=== PATIENT | male | born 1965 | race Asian ===

== ENCOUNTER 2024-01-28 14:18 | Outpatient (AMB) | payer OTHER, SELFPAY ==
--- NOTE | 2024-01-28 14:15 | A.OFFVIS_ITS ---
Intake Visit Reasons: elevated PSA Intake Note: New Patient presents for initial visit for Elevated PSA Last PSA 08/2023: 6.8 Urology Medications: none Blood Thinner: none Dispute Resolution Specialist Required: No Accompanied by: Self / Same As Patient Allergies No Known Allergies Allergy (Verified 01/28/24 15:26) Medication List - Last Reconciled 01/28/24 by MICHAEL Matute atorvastatin PO losartan PO metformin PO sulfamethoxazole-trimethoprim 800-160 mg (Bactrim DS) 1 tab PO BID 14 days HPI Comments Details: Kerwin is a 58-year-old male patient of Dr. Greer. He has a past medical history of hypercholesteremia, diabetes, asthma, and hypertension. He presents to the office today as a new patient for an elevated PSA. In discussion with the patient today he reports following up with his PCP at which time PSA was noted to be elevated and recommendation was made for urology referral for further assessment evaluation. When asked he does report noting new onset nocturia over the last 1-2 months. He reports episodes of nocturia 3-4 times per night. He otherwise denies urinary urgency, urinary frequency, incontinence, hematuria, dysuria, foul smelling urine, changes to urinary stream, flank pain, fever, and or chills. When asked he reports he is unsure of his family history and if he has a family history of prostate cancer. We discussed at length potential causes of elevated PSA. CLAUDIA performed left-side of prostate noted to be boggy otherwise right side with no smooth and no suspicious nodules palpated. In office urinalysis results reviewed with the patient today. In review of patient's chart it appears PSA 09/22 6.8. Discussed treatment for potential prostatitis given CLAUDIA. Discussed redraw of PSA 6-8 weeks status post completion of antibiotic therapy. Will also obtain retroperitoneal ultrasound for further assessment evaluation. He otherwise offers no other issues or concerns at this time. [facility] Medical History High cholesterol Diabetes mellitus Asthma Hypertension Review of Systems Const All systems reviewed & are unremarkable except as noted in HPI and below Physical Exam Const General: cooperative, comfortable, no acute distress, well developed, alert and awake Orientation/consciousness: patient oriented x3 HEENT Head: Yes normal to inspection, Yes normocephalic and Yes atraumatic Ears: hearing grossly normal bilaterally Eyes General: appearance normal, both eyes and all related structures Neck Neck: Yes normal visual inspection and Yes trachea midline Chest Chest palpation & inspection: normal inspection of the chest Resp Effort & Inspection: normal respiratory effort and able to speak in complete sentences Cardio Rate: regular rate GI Inspection: Yes normal to inspection General: Yes no CVA tenderness Back/Spine/Pelvis Back: no CVA tenderness Skin General skin exam: no rashes or lesions noted Neuro General: patient oriented x3 Extrem General: Yes normal to inspection Psych Appearance: grossly normal and well kempt Mental Status: mental status grossly normal Speech and movement: Normal speech and movement present and Clear speech present Affect: normal affect Attitude: cooperative Thought process: Normal thought process present Thought content: Normal thought content present Results AMB Urinalysis, Automated UA Leukoctes 0 Dustin/uL Last Edit by [employer] on 01/28/24 14:34 UA Nitrite Last Edit by [employer] on 01/28/24 14:34 UA Urobilinogen 0.2 mg/dL Last Edit by [employer] on 01/28/24 14:34 UA Protein 0 mg/dL Last Edit by [employer] on 01/28/24 14:34 UA pH 6.0 Last Edit by [employer] on 01/28/24 14:34 UA Blood 0 Alonso/uL Last Edit by [employer] on 01/28/24 14:34 UA Specific [place] 1.025 Last Edit by [employer] on 01/28/24 14:34 UA Ketone Last Edit by [employer] on 01/28/24 14:34 UA Bilirubin 0 mg/dL Last Edit by [employer] on 01/28/24 14:34 UA Glucose 0 mg/dL Last Edit by [employer] on 01/28/24 14:34 Results Reviewed Results Reviewed: Laboratory Last Values Urine pH (Auto) 6.0 01/28/24 14:19 Specific [place] (Auto) 1.025 01/28/24 14:19 Urine Protein (Auto) 0 mg/dL 01/28/24 14:19 Glucose (UA)(Auto) 0 mg/dL 01/28/24 14:19 Urine Blood (Auto) 0 Alonso/uL 01/28/24 14:19 Urine Bilirubin (Auto) 0 mg/dL 01/28/24 14:19 Urine Urobilinogen (Auto) 0.2 mg/dL 01/28/24 14:19 Leukocyte Esterase (Auto) 0 Dustin/uL 01/28/24 14:19 Assessment & Plan Assessment & Plan (1) Elevated PSA: Code(s): R97.20 - Elevated prostate specific antigen [PSA] Category: Medical (2) Prostatitis: Code(s): N41.9 - Inflammatory disease of prostate, unspecified Category: Medical Plan In office urinalysis results reviewed with the patient today; as noted above. CLAUDIA performed; discussed potential for prostatitis given left-side of the prostate noted to be boggy upon CLAUDIA. Discussed at length potential causes of elevated PSA. Start Bactrim as discussed and prescribed. Will obtain redraw of PSA status post completion of antibiotic therapy. Will obtain retroperitoneal ultrasound for further assessment evaluation. Discussed importance of limiting fluids 2-3 hours prior to bed to decrease episodes of nocturia. Follow-up in 2 months with imaging and labs to be completed prior; or sooner with any issues, concerns, and or questions. Orders: Orders US retroperitoneal comp 6 Weeks N41.9 - Inflammatory disease of prostate, unspecified, R35.1 - Nocturia, R97.20 - Elevated prostate specific antigen [PSA] AMB Urinalysis Automated Today Z13.9 - Encounter for screening, unspecified PSA,Total (Free>4and<10) Today N41.9 - Inflammatory disease of prostate, unspecified, R97.20 - Elevated prostate specific antigen [PSA] Medications: New sulfamethoxazole-trimethoprim 800-160 mg (Bactrim DS) 1 tab PO BID 28 tabs 0RF 14 days N39.0 - Urinary tract infection, site not specified Patient Instructions: The patient had an opportunity to ask questions regarding the treatment plan. All questions were answered. Physical exam, labs, and imaging were discussed and reviewed in detail. As well as risks, benefits, and discussion of treatment choices. No major barriers to understanding were identified. The patient expressed understanding and agreement with the above treatment plan. The patient was made aware they should contact our office by phone for worsening of their current condition, the appearance of new symptoms, or with any questions or concerns. Compliance is encouraged with any medications and follow up testing that is ordered. It is a privilege to be allowed the opportunity to participate in? your urological care.? Again, if you have any questions or concerns If you have any questions or concerns please do not hesitate to contact me. The office is [phone]. This note is constructed using voice recognition software. While every effort has been made to ensure accuracy vocational psychologist errors may have been included. Yours sincerely, MICHAEL Matute Coding Level of Care Code New Pt Level 4 (83368) Diagnoses Elevated PSA R97.20 Prostatitis N41.9
== END 2024-01-28 14:59 | disposition home or self-care (01) ==
PROVIDERS: PCP Internal Medicine; Visit Provider Nurse Practitioner Family
DX: R97.20 Elevated prostate specific antigen [PSA] (principal); N41.9 Inflammatory disease of prostate, unspecified; Z13.9 Encounter for screening, unspecified
CPT/HCPCS: 99204

== ENCOUNTER → 2024-01-28 14:18 | Outpatient (BNVA) | payer OTHER, SELFPAY | PROVIDERS: PCP Internal Medicine; Visit Provider Nurse Practitioner Family | DX: R97.20 Elevated prostate specific antigen [PSA] (principal); N41.9 Inflammatory disease of prostate, unspecified | CPT/HCPCS: 81003 ==

== ENCOUNTER 2024-04-14 14:22 | Outpatient (AMB) | payer OTHER, SELFPAY ==
--- NOTE | 2024-04-14 15:00 | A.OFFVIS_ITS ---
Intake Visit Reasons: 2m/US/PSA Intake Note: Patient presents today for follow up on:Elevated PSA, ultrasound and psa lab results PSA: 7.63 Urology Medications: none Blood Thinner: none Real Estate Marketing Coordinator Required: No Accompanied by: Self / Same As Patient Allergies No Known Allergies Allergy (Verified 04/15/24 10:52) Medication List - Last Reconciled 04/15/24 by MICHAEL Matute atorvastatin PO levofloxacin 500 mg PO daily 3 days losartan PO metformin PO HPI Comments Details: Kerwin is a 58-year-old male patient of Dr. Greer. He has a past medical history of hypercholesteremia, diabetes, asthma, and hypertension. He presents to the office today for follow-up. Of note, patient was seen approximately 2 months ago as a new patient for an elevated PSA at which time retroperitoneal ultrasound and redraw of PSA status post completion of antibiotic therapy was ordered. During last office visit CLAUDIA was performed and left-side of the prostate was noted to be boggy at which time we discussed potential elevated PSA being related to prostatitis. In discussion with the patient today he reports having completed antibiotic therapy as prescribed. Patient had imaging at [facility], call to [facility] imaging remains pending this was discussed with the patient today. PSAs are as follows: 09/22 6.8, 04/24 7.6, % free PSA 8%. PCPT risk calculator results reviewed with the patient today. 23% chance that biopsy is negative for cancer, 53% chance of low-grade prostate cancer, and 24% chance of high-grade prostate cancer. We discussed further intervention to include prostate biopsy verses MRI of the prostate and risks and benefits of these interventions. All questions were answered. He otherwise offers no other issues or concerns at this time. [facility] Medical History High cholesterol Diabetes mellitus Asthma Hypertension Review of Systems Const All systems reviewed & are unremarkable except as noted in HPI and below Physical Exam Const General: cooperative, comfortable, no acute distress, well developed, alert and awake Orientation/consciousness: patient oriented x3 HEENT Head: Yes normal to inspection, Yes normocephalic and Yes atraumatic Ears: hearing grossly normal bilaterally Eyes General: appearance normal, both eyes and all related structures Neck Neck: Yes normal visual inspection and Yes trachea midline Chest Chest palpation & inspection: normal inspection of the chest Resp Effort & Inspection: normal respiratory effort and able to speak in complete sentences Cardio Rate: regular rate GI Inspection: Yes normal to inspection General: Yes no CVA tenderness Back/Spine/Pelvis Back: no CVA tenderness Skin General skin exam: no rashes or lesions noted Neuro General: patient oriented x3 Extrem General: Yes normal to inspection Psych Appearance: grossly normal and well kempt Mental Status: mental status grossly normal Speech and movement: Normal speech and movement present and Clear speech present Affect: normal affect Attitude: cooperative Thought process: Normal thought process present Thought content: Normal thought content present Insight: Fair insight present (Psych) Judgement: Fair judgement present (Psych) Results AMB Urinalysis, Automated UA Leukoctes 0 Dustin/uL Last Edit by [employer] on 04/14/24 15:50 UA Nitrite Negative Last Edit by [employer] on 04/14/24 15:50 UA Urobilinogen 0.2 mg/dL Last Edit by [employer] on 04/14/24 15:50 UA Protein 0 mg/dL Last Edit by [employer] on 04/14/24 15:50 UA pH 6.0 Last Edit by [employer] on 04/14/24 15:50 UA Blood 0 Alonso/uL Last Edit by [employer] on 04/14/24 15:50 UA Specific [place] 1.015 Last Edit by [employer] on 04/14/24 15:50 UA Ketone Negative Last Edit by [employer] on 04/14/24 15:50 UA Bilirubin 0 mg/dL Last Edit by [employer] on 04/14/24 15:50 UA Glucose 0 mg/dL Last Edit by [employer] on 04/14/24 15:50 Results Reviewed Results Reviewed: Laboratory Last Values Urine pH (Auto) 6.0 04/14/24 15:49 Specific [place] (Auto) 1.015 04/14/24 15:49 Urine Protein (Auto) 0 mg/dL 04/14/24 15:49 Glucose (UA)(Auto) 0 mg/dL 04/14/24 15:49 Urine Ketones (Auto) Negative 04/14/24 15:49 Urine Blood (Auto) 0 Alonso/uL 04/14/24 15:49 Urine Nitrite (Auto) Negative 04/14/24 15:49 Urine Bilirubin (Auto) 0 mg/dL 04/14/24 15:49 Urine Urobilinogen (Auto) 0.2 mg/dL 04/14/24 15:49 Leukocyte Esterase (Auto) 0 Dustin/uL 04/14/24 15:49 Assessment & Plan Assessment & Plan (1) Elevated PSA: Code(s): R97.20 - Elevated prostate specific antigen [PSA] Category: Medical Plan: Plan Risks and benefits regarding trans rectal ultrasound with prostate biopsy were discussed.? Options of continued surveillance, no treatment and biopsy were offered. The risks include but are not limited to, urinary tract infection, sepsis, difficulty urinating, bleeding into the rectum or bladder that requires intervention and transfusion,and failure to diagnose prostate cancer. The patient understands the options and the risks involved. They wish to proceed. Printed information was provided to ensure he remains off anticoagulation for the appropriate length of time. He may require cardiology or PCP clearance.? An antibiotic will be administered prior to, and following the procedure Plan In office urinalysis results reviewed with the patient today; as noted above. Recent PSA results reviewed with the patient today; as noted above. We discussed at length potential causes of elevated PSA as well as further treatment options and risks and benefits of these interventions. Will await results of imaging as retroperitoneal ultrasound remains pending. Will schedule for prostate biopsy as discussed Prescription provided for antibiotic therapy discussed importance of taking antibiotic day before procedure, day of procedure, and day after procedure. Follow-up per doctor's orders; or sooner with any questions, concerns, and or issues. Orders: Orders AMB Urinalysis Automated 04/14/24 Z13.9 - Encounter for screening, unspecified Medications: New levofloxacin take 1 tablet day before procedure, 1 tablet day of procedure and 1 tablet day after procedure 500 mg PO daily 3 days 3 tabs 0RF Discontinued sulfamethoxazole-trimethoprim 800-160 mg (Bactrim DS) Discontinued Reason: Doctor's Order 1 tab PO BID 14 days 28 tabs 0RF N39.0 - Urinary tract infection, site not specified Patient Instructions: The patient had an opportunity to ask questions regarding the treatment plan. All questions were answered. Physical exam, labs, and imaging were discussed and reviewed in detail. As well as risks, benefits, and discussion of treatment choices. No major barriers to understanding were identified. The patient expressed understanding and agreement with the above treatment plan. The patient was made aware they should contact our office by phone for worsening of their current condition, the appearance of new symptoms, or with any questions or concerns. Compliance is encouraged with any medications and follow up testing that is ordered. It is a privilege to be allowed the opportunity to participate in? your urological care.? Again, if you have any questions or concerns If you have any questions or concerns please do not hesitate to contact me. The office is [phone]. This note is constructed using voice recognition software. While every effort has been made to ensure accuracy assembly line machine operator errors may have been included. Yours sincerely, MICHAEL Matute Coding Level of Care Code Est Pt Level 4 (15776) Diagnoses Elevated PSA R97.20
== END 2024-04-14 15:40 | disposition home or self-care (01) ==
PROVIDERS: PCP Internal Medicine; Visit Provider Nurse Practitioner Family
DX: R97.20 Elevated prostate specific antigen [PSA] (principal)
CPT/HCPCS: 99214

== ENCOUNTER → 2024-04-14 14:22 | Outpatient (BNVA) | payer OTHER, SELFPAY | PROVIDERS: PCP Internal Medicine; Visit Provider Nurse Practitioner Family | DX: R97.20 Elevated prostate specific antigen [PSA] (principal) | CPT/HCPCS: 81003 ==

== ENCOUNTER 2024-05-05 07:39 | Outpatient (REF) | payer OTHER, SELFPAY ==
[2024-05-05] MEDS: Lidocaine HCl 1 % MPF 5 ML VIAL 10 ML SUBCUT (08:30)
--- NOTE | 2024-05-06 17:10 | W.PM.OPN ---
Operative Note Operative Note Date of Service: 05/06/24 Narrative: Preoperative diagnosis: Elevated PSA Postoperative diagnosis: Elevated PSA Procedure: 1. transrectal ultrasound measurement of prostate 2. transrectal ultrasound-guided pudendal nerve block 3. transrectal ultrasound-guided prostate biopsy 12 core Surgeon: Dr. Miller Rodgers Anesthetic: 10cc 1% lidocaine Indications for procedure: Elevated PSA 7.6 8% Counselling: Technical aspects, risks and benefits of proposed procedure were discussed in full. All questions have been answered, written consent has been obtained and patient agrees to proceed. Procedure: The patient was brought into the procedure area and placed in a left lateral decubitus position. Patient identity confirmed. Perioperative antibiotics confirmed. Safety pause time out performed. CLAUDIA was performed to dilate rectal sphincter Iodine 10cc with 60 cc gel was placed per rectum to reduce infection risk using a catheter tip syringe. 8 Hz [place] rectal end-fire ultrasound probe was placed transrectally without difficulty. The prostate was visualized. Seminal vesicles were normal. Prostate margins were clearly demarcated. Bladder was seen superiorly. No cystic structures were noted No calcifications were noted at the surgical margin The prostate was otherwise homogeneous in nature The prostate was measured in 3 dimensions Prostatic Width: 4.4 cm Prostatic Height: 3.1 cm Urethral Length: 4.3 cm Total volume equals : 30 ml An ultrasound-guided pudendal nerve block was performed using a 22 gauge spinal needle in the sagittal plane. 4 cc of 1% lidocaine placed at the junction of each seminal vesicle and 2 cc placed at the apex of the prostate. A 12 core biopsy was performed with 6 cores each side using an 18 gauge prostate biopsy gun. Two cores each were taken at the prostate apex, mid and base on each side. Cores were spaced between lateral and medial aspects. Each core was examined as placed on specimen foam as part of quality audit representative to ensure a minimum 1 cm of length and minimal discontinuity. He tolerated the procedure well with minimal rectal bleeding. Blood pressure remained stable following procedure. He was able to ambulate to bathroom after 5 minutes. Printed instructions regarding antibiotic use and common adverse events from the procedure such as low-grade temperature, potential infection and bleeding were given. He understands to call the office or go to an emergency room should any of these events arise. Pathology: 12 core prostate biopsy. CPT code 82691: Transrectal ultrasound; this is a diagnostic test for evaluation of the prostate and surrounding structures, looking for abnormalities or suspicious areas worrisome for cancer CPT code 60271: Biopsy, prostate; needle or punch, single or multiple, any approach CPT code 89014: Ultrasonic guidance for needle placement (eg, biopsy, aspiration, injection, localization device), imaging supervision and interpretation
== END 2024-05-05 07:40 | disposition home or self-care (01) ==
LOC: HO.US 07:39
PROVIDERS: PCP Internal Medicine; Visit Provider Urology
DX: R97.20 Elevated prostate specific antigen [PSA] (principal)
CPT/HCPCS: 55700; 76942; 88305; 88344; J2003

== ENCOUNTER → 2024-05-05 07:39 | Outpatient (BNV) | payer OTHER, SELFPAY | PROVIDERS: PCP Internal Medicine; Visit Provider Urology | DX: R97.20 Elevated prostate specific antigen [PSA] (principal) | CPT/HCPCS: 55700; 76872; 76942 ==

== ENCOUNTER 2024-05-19 13:41 | Outpatient (AMB) | payer OTHER, SELFPAY ==
--- NOTE | 2024-05-19 13:41 | A.OFFVIS_ITS ---
Intake Visit Reasons: Prostate biopsy results Intake Note: Patient is present for PROSTATE BIOPSY RESULTS Urology Medication:NONE Antibiotic Allergy:NONE Blood Thinner:NONE Assistant Clinical Nurse Manager Required: No Allergies No Known Allergies Allergy (Verified 05/19/24 13:42) HPI Comments Details: Garrydine is a pleasant in male. He is a patient of Dr. Greer. He seen for the following urological history - prostate cancer Telemedicine Evaluation 15 min Consultation Doximity Ervin Video Discussion of prostate biopsy results with patient and Does have low volume, grade group 1 prostate adenocarcinoma 2/12 cores less than 10 percentage core NCCN 2023 First step is to complete staging Organize prostate MRI Leaning toward active surveillance Prostate cancer 09/22 6.8, 04/24 7.6, % free PSA 8%. Histologic type: Adenocarcinoma, acinar type Histologic grade: [place] score: 3+3=6 % of pattern 4: 0% % of pattern 5: 0% Grade group: 1 Tumor quantitation: Number cores positive: 2 Total number of cores: 12 tissue involved: 1-2% of all tissue examined Periprostatic fat inv.: Not identified Seminal vesicle inv.: Not identified Perineural inv.: Not identified LVI: Not identified [facility] Medical History High cholesterol Diabetes mellitus Asthma Hypertension Review of Systems Const All systems reviewed & are unremarkable except as noted in HPI and below Reports no additional complaints Resp Reports no additional complaints GI Reports no additional complaints Reports as per HPI Musc Reports no additional complaints Physical Exam Telemedicine evaluation Appropriate responses Regular breathing rate and rhythm HEENT Head: Yes normal to inspection Ears: hearing grossly normal bilaterally Eyes General: appearance normal, both eyes and all related structures Neck Neck: Yes normal visual inspection Chest Chest palpation & inspection: normal inspection of the chest Resp Effort & Inspection: normal respiratory effort and able to speak in complete sentences Telehealth Telehealth Telehealth Platform: [employer] Location of provider rendering services: practice address Location of patient: address on file Patient Identification confirmed using: Name, : Yes Telehealth method: video Patient verbally consented to treatment: Yes Patient verbally consented to billing insurance company: Yes Patient informed of any privacy concerns related to visit: Yes Minutes spent on Phone/Video with Pt.: 15 Assessment & Plan Assessment & Plan (1) Hormone sensitive prostate cancer: Code(s): C61 - Malignant neoplasm of prostate; Z19.1 - Hormone sensitive malignancy status Category: Medical Plan Start finasteride Complete prostate MRI Orders: Orders 2 MR Prostate wo/w con 2 Weeks C61 - Malignant neoplasm of prostate, Z19.1 - Hormone sensitive malignancy status Medications: New finasteride 5 mg PO DAILY 90 days 90 tabs 1RF N13.8 - Other obstructive and reflux uropathy, N40.1 - Benign prostatic hyperplasia with lower urinary tract symptoms, N41.9 - Inflammatory disease of prostate, unspecified, R33.9 - Retention of urine, unspecified Patient Instructions: Imaging studies, laboratory and physical exam results were discussed and reviewed in detail. No major barriers to patient understanding were identified. An opportunity to ask questions regarding the treatment plan was provided. All questions were answered. The patient expressed understanding and agreement with the above treatment plan. The patient is aware they should contact our office by phone for worsening of their current condition or the appearance of new urologic symptoms. Compliance is encouraged with any medications and followup testing that is ordered. It is a privilege to participate in the urologic care of your patient. If you have any questions or concerns regarding treatment for the above conditions, or other urologic issues, please do not hesitate to contact me. The office tel ephone contact is [phone]. This note is constructed using voice recognition software. While every effort has been made to ensure accuracy sales development executive errors may have been included. Yours sincerely, Dr Miller Rodgers MD, [facility] - Urology Providers of Expert, Compassionate Care for the Genitourinary System Coding Level of Care Code Est Pt Level 4 (91582) Diagnoses Hormone sensitive prostate cancer C61; Z19.1
== END 2024-05-19 15:43 | disposition home or self-care (01) ==
LOC: HO.HUSH 13:41
PROVIDERS: PCP Internal Medicine; Visit Provider Urology
DX: C61 Malignant neoplasm of prostate (principal); Z19.1 Hormone sensitive malignancy status
CPT/HCPCS: 99214

== ENCOUNTER 2024-06-24 08:48 | Outpatient (REF) | payer OTHER, SELFPAY ==
--- NOTE | ~2024-06-24 | MR_ITS ---
EXAMINATION: MR PROSTATE WITHOUT THEN WITH IV CONTRAST HISTORY: C61 - Malignant neoplasm of prostate TECHNIQUE: 1.5T body coil survey of the pelvis was performed. Phase array coil imaging of the prostate was performed in multiplanar high resolution axial, coronal, sagittal fast spin echo T2 and axial T1 weighted imaging sequences. Axial diffusion imaging at intermediate and high field performed with ADC mapping. Next, mL Gadavist was given by intravenous infusion, and dynamic axial imaging performed. COMPARISON: There are no prior studies for comparison. CLINICAL DATA: Most recent PSA: 7.63 ng/mL on 04/07/2024 PSA Density: 0.31 ng/mL squared Prostate Biopsy: Positive biopsy on 05/05/2024 with a Institute score 3+3 = 6 FINDINGS: Prostate size: 3.8 x 4.3 x 2.9 cm. Calculated prostate volume is 24.6 mL. Hemorrhage: There is increased T1 signal intensity in the left peripheral zone, compatible with hemorrhage. Transitional Zone: There is mild heterogeneous nodular hypertrophy of the transitional zone. Peripheral Zone: There is decreased T2 signal intensity in the left half of the prostate corresponding to the areas of hemorrhage noted on T1-weighted images. No definite restricted diffusion is seen in this region. There is a 1.4 cm focus of abnormal signal intensity at the anterior aspect of the apex in the midline (series 7, images 20-22), with imaging characteristics as follows: Lesion #1: DWI PI-RADS v2.1 score: 4 T2 PI-RADS v2.1 score: 4 DCE PI-RADS v2.1 score: + Overall PI-RADS v2.1 score: 4 Capsular contact: yes Extracapsular extension: No definite Seminal vesicle invasion: None Neurovascular bundle involvement: None Seminal Vesicles/Ejaculatory Ducts: Symmetric and normal in signal and caliber. Pelvic Lymph Nodes: No obturator or internal iliac lymph nodes meeting size criteria for adenopathy. Marrow Signal: Normal marrow signal and enhancement without focal lesion identified. MR/MR Prostate wo/w con IMPRESSION: Lesion of the anterior aspect of the prostate apex in the midline, highly suspicious for clinically significant prostate carcinoma. PI-RADS 4: High (clinically significant cancer is likely to be present) PI-RADS Assessment Categories PI-RADS 1: Very low (clinically significant cancer is highly unlikely to be present) PI-RADS 2: Low (clinically significant cancer is unlikely to be present) PI-RADS 3: Intermediate (the presence of clinically significant cancer is equivocal) PI-RADS 4: High (clinically significant cancer is likely to be present) PI-RADS 5: Very high (clinically significant cancer is highly likely to be present) [employer]. MR Prostate Imaging Reporting and Data System version 2.1. [email or web address] Electronically signed by: Abraham Kohli MD 06/24/2024 10:33 AM MARÍA
[2024-06-24] MEDS: gadobutroL 10 ML VIAL IVPUSH (09:49)
== END 2024-06-24 08:49 | disposition home or self-care (01) ==
LOC: HO.MRI 08:48
PROVIDERS: PCP Internal Medicine; Visit Provider Urology
DX: C61 Malignant neoplasm of prostate (principal); Z19.1 Hormone sensitive malignancy status
CPT/HCPCS: 72197; A9585

== ENCOUNTER 2024-06-30 10:33 | Outpatient (AMB) | payer OTHER, SELFPAY ==
--- NOTE | 2024-06-30 10:35 | MHC.OFFVIS ---
Intake Visit Reasons: Prostate MRI(Set) Intake Note: Patient is present for PROSTATE MRI Urology Medication:FINASTERIDE Antibiotic Allergy:NONE Blood Thinner:NONE Dx Board Operator Required: No Allergies No Known Allergies Allergy (Verified 06/30/24 10:36) HPI Comments Details: Garrydine is a pleasant in male. He is a patient of Dr. Greer. He seen for the following urological history - prostate cancer Follow-up from prostate MRI Does have low volume, grade group 1 prostate adenocarcinoma 2/12 cores less than 10 percentage core NCCN 2023 MRI low volume disease Will start with active surveillance Remain on finasteride Arrange polaris Prostate cancer MRI: 06/25 1.4 cm lesion anterior midline PI-RADS 4, prostate 30 g 09/22 6.8, 04/24 7.6 % free PSA 8%. Histologic type: Adenocarcinoma, acinar type Histologic grade:Chantel score: 3+3=6 % of pattern 4: 0% % of pattern 5: 0% Grade group: 1 Tumor quantitation: Number cores positive: 2 Total number of cores: 12 Periprostatic fat inv.: Not identified Seminal vesicle inv.: Not identified Perineural inv.: Not identified LVI: Not identified PFSH Medical History High cholesterol Diabetes mellitus Asthma Hypertension Review of Systems Const Denies chills and Denies fever(s) Card Reports no additional complaints and Denies syncope Resp Denies cough GI Denies abdominal pain and Denies heartburn Reports as per HPI and Denies change in libido Neuro Denies syncope Psych Denies change in libido Endo Denies change in libido Physical Exam Const General: cooperative, healthy appearing, comfortable and no acute distress Orientation/consciousness: patient oriented x3 HEENT Face and sinus: Yes normal facial exam Mouth: moist mucous membranes Neck Neck: Yes normal visual inspection, Yes full ROM and Yes trachea midline Chest Chest palpation & inspection: normal inspection of the chest Resp Effort & Inspection: normal respiratory effort, able to speak in complete sentences and no respiratory distress GI Inspection: Yes normal to inspection Back/Spine/Pelvis Cervical Spine: normal cervical lordosis Thoracic/Lumbar Spine: thoracic and lumbar spine normal to inspection Skin General skin exam: no rashes or lesions noted Neuro General: patient oriented x3, gait normal, tone normal and moves all extremities Extrem General: Yes normal to inspection and Yes capillary refill normal Results AMB Urinalysis, Automated UA Leukoctes 0 Dustin/uL Last Edit by RICK Durán on 06/30/24 11:21 UA Nitrite Negative Last Edit by RICK Durán on 06/30/24 11:21 UA Urobilinogen 0.2 mg/dL Last Edit by RICK Durán on 06/30/24 11:21 UA Protein 0 mg/dL Last Edit by RICK Durán on 06/30/24 11:21 UA pH 6.0 Last Edit by Keshawn Kwok [facility] on 06/30/24 11:21 UA Blood 0 Alonso/uL Last Edit by [facility] Kw[facility] on 06/30/24 11:21 UA Specific [place] 1.020 Last Edit by Keshawn Kwok [facility] on 06/30/24 11:21 UA Ketone Negative Last Edit by RICK Durán on 06/30/24 11:21 UA Bilirubin 0 mg/dL Last Edit by Keshawn Kwok [facility] on 06/30/24 11:21 UA Glucose 0 mg/dL Last Edit by Keshawn Kwok [facility] on 06/30/24 11:21 Results Reviewed Results Reviewed: Laboratory Last Values Urine pH (Auto) 6.0 06/30/24 11:21 Specific [place] (Auto) 1.020 06/30/24 11:21 Urine Protein (Auto) 0 mg/dL 06/30/24 11:21 Glucose (UA)(Auto) 0 mg/dL 06/30/24 11:21 Urine Ketones (Auto) Negative 06/30/24 11:21 Urine Blood (Auto) 0 Alonso/uL 06/30/24 11:21 Urine Nitrite (Auto) Negative 06/30/24 11:21 Urine Bilirubin (Auto) 0 mg/dL 06/30/24 11:21 Urine Urobilinogen (Auto) 0.2 mg/dL 06/30/24 11:21 Leukocyte Esterase (Auto) 0 Dustin/uL 06/30/24 11:21 Assessment & Plan Assessment & Plan (1) Hormone sensitive prostate cancer: Code(s): C61 - Malignant neoplasm of prostate; Z19.1 - Hormone sensitive malignancy status Category: Medical Plan Continue finasteride Six-month follow-up PSA Prolaris Orders: Orders AMB Urinalysis Automated Today Z13.9 - Encounter for screening, unspecified Prostate Specific Antigen 6 Months C61 - Malignant neoplasm of prostate, Z19.1 - Hormone sensitive malignancy status Patient Instructions: Imaging studies, laboratory and physical exam results were discussed and reviewed in detail. No major barriers to patient understanding were identified. An opportunity to ask questions regarding the treatment plan was provided. All questions were answered. The patient expressed understanding and agreement with the above treatment plan. The patient is aware they should contact our office by phone for worsening of their current condition or the appearance of new urologic symptoms. Compliance is encouraged with any medications and followup testing that is ordered. It is a privilege to participate in the urologic care of your patient. If you have any questions or concerns regarding treatment for the above conditions, or other urologic issues, please do not hesitate to contact me. The office telephone contact is [phone]. This note is constructed using voice recognition software. While every effort has been made to ensure accuracy linoleum floor installer errors may have been included. Yours sincerely, Dr Miller Rodgers MD, [facility] - Urology Providers of Expert, Compassionate Care for the Genitourinary System Coding Level of Care Code Est Pt Level 3 (34921) Diagnoses Hormone sensitive prostate cancer C61; Z19.1
--- OUTSIDE RECORDS SUMMARY | 2024-06-30 14:10 | XMS_ITS | Clinical Summary ---
Author Organization [facility] Address [address] [place] [address] Phone Care Team Providers Care Processing Rep Name Role Phone Donna Greer MD Primary Care Provider [phone] Encounters Date Type Department Care Team Description 04/12/2024 10:22 AM EST - 04/12/2024 11:59 PM EST Hospital Encounter [facility] Ultrasound [address] [place] [phone] Elevated prostate specific antigen (PSA); Inflammatory disease of prostate, unspecified; Nocturia Discharge Disposition: Home or Self Care from Last 3 Months Surgical History Surgery Date Site/Laterality Comments OTHER SURGICAL HISTORY PROCEDURE: DENIES PREVIOUS SURGERY Medical History Medical History Date Comments HTN (hypertension) DX:HTN (hyper tension) Allergic rhinitis 11/15/2018 DX:Allergic rh initis Nasal septal deviation 11/15/2018 DX:Nasal septal deviation; COMMENT: left Pure hypercholesterolemia 11/15/2018 DX:Pur e hypercholesterolemia Family History Medical History Relation Name Comments No Known Problems Brother No Known Problems Father No Known Problems Mother No Known Problems Sister Relation Name Status Comments Brother Alive Father Alive Mother Alive Sister Alive Social History Tobacco Use Types Packs/Day Years Used Date Smoking Tobacco: Never Smokeless Tobacco: Never Alcohol Use Standard Drinks/Week Comments No 0 (1 standard drink = 0.6 oz pur e alcohol) Sex and Gender Information Value Date Recorded Sex Assigned at Not on file Gender Identity Not on file Sexual Orientation Not on file Job Start Date Occupation Industry Not on file Not on file Not on file Obstetrics History Plan of Treatment Health Maintenance Due Date Last Done Comments Cholesterol Screening (Lipid Panel) 07/02/2019 Colorectal Cancer Screening: Stool Based Tests (FOBT/FIT) 07/02/2019 Depression Screening 07/02/2019 HIV Screening 07/02/2019 Hepatitis C Screening 07/02/2019 Social Influencers of Health Screening 07/02/2019 Hepatitis B Vaccines (2 of 3 - 19+ 3-dose series) 02/01/2020 01/04/2020 Hypertension/CHF/CAD Annual BMP Blood Test 05/15/2022 COVID-19 Vaccine ( season) 2024 05/13/2023, 04/02/2021, 09/27/2020, Additional history exists Influenza Vaccine (#1) 2024 03/11/2023, 2020 DTaP,Tdap,and Td Vaccines (2 - Td or Tdap) 04/09/2032 04/09/2022 Pneumococcal Vaccine: Pediatrics (0 to 5 Years) and At-Risk Patients (6 to 64 Years) Aged Out 03/19/2021 No longer eligible based on patient's age to complete this topic Zoster Vaccines Completed 03/11/2023, 04/09/2022 HIB Vaccines Aged Out No longer eligi ble based on patient's age to complete this topic HPV Vaccines Aged Out No longer eligi ble based on patient's age to complete this topic Hepatitis A Vaccines Aged Out No long er eligible based on patient's age to complete this topic IPV Vaccines Aged Out No longer eligi ble based on patient's age to complete this topic MMR Vaccines Aged Out No longer eligi ble based on patient's age to complete this topic Meningococcal ACWY Vaccine Aged Out N o longer eligible based on patient's age to complete this topic RSV Immunization Patients Under 20 months Aged Out No longer eligible based on patient's age to complete this topic Varicella Vaccines Aged Out No longer eligible based on patient's age to complete this topic Procedures Procedure Name Priority Date/Time Associated Diagnosis Comments US RETROPERITONEAL COMPLETE Routine 04/12/2024 11:57 AM EST Elevated prostate specific antigen (PSA) Inflammatory disease of prostate, unspecified Nocturia PSA TOTAL, FREE AND COMPLEXED, DIAGNOSTIC Routine 04/07/2024 8:27 AM EST Inflammatory disease of prostate, unspecified Elevated prostate specific antigen (PSA) Nocturia from Last 3 Months Results * US Retroperitoneal Complete (04/12/2024 11:57 AM EST) Anatomical Region Laterality Modality Body Ultrasound 04/12/2024 12:3 2 PM EST Impressions 04/12/2024 12:41 PM EST NORMAL KIDNEYS. ENLARGED PROSTATE WITH MINIMAL POST VOID RESIDUAL. -------- FINAL REPORT -------- Dictated By: AMAN LEOS Dictated Date: 04/12/2024 12:32 ET Assigned Physician: AMAN LEOS Reviewed and Electronically Signed By: AMAN LEOS Signed Date: 04/12/2024 12:41 ET Workstation ID: [id number] Transcribed By: Self Edit Transcribed Date: 04/12/2024 12:32 ET Narrative 04/12/2024 12:41 PM EST PROCEDURE: US RETROPERITONEAL COMPLETE INDICATION: Elevated prostate-specific antigen TECHNIQUE: ??2-D flores scale, color Doppler ultrasound of the kidneys. COMPARISON: No priors available. FINDINGS: Right kidney measures 10.3 cm in length. ??Left kidney measures 9.5 cm in length. No hydronephrosis or solid renal mass. Prevoid bladder volume measures 323 mL. ??Postvoid bladder volume measures 27 mL. ??Bladder is within normal limits. ??Bilateral ureteral jets seen at the bladder. Prostate volume is estimated at 38 mL. Procedure Note Aman Leos MD - 04/12/2024 PROCEDURE: US RETROPERITONEAL COMPLETE INDICATION: Elevated prostate-specific antigen TECHNIQUE: 2-D flores scale, color Doppler ultrasound of the kidneys. COMPARISON: No priors available. FINDINGS: Right kidney measures 10.3 cm in length. Left kidney measures9.5 cm in length. No hydronephrosis or solid renal mass. Prevoid bladder volume measures 323 mL. Postvoid bladder volume [id number] mL. Bladder is within normal limits. Bilateral ureteral jets seen atthe bladder. Prostate volume is estimated at 38 mL. IMPRESSION: NORMAL KIDNEYS. ENLARGED PROSTATE WITH MINIMAL POST VOID RESIDUAL. -------- FINAL REPORT -------- Dictated By: AMAN LEOS Dictated Date: 04/12/2024 12:32 ET Assigned Physician: AMAN LEOS Reviewed and Electronically Signed By: AMAN LEOS Signed Date: 04/12/2024 12:41 ET Workstation ID: [id number] Transcribed By: Self Edit Transcribed Date: 04/12/2024 12:32 ET Maurajuan m Domingoos [facility] IMG US PROCEDURES * (ABNORMAL) PSA total, free and complexed (04/07/2024 8:27 AM EST) PSA 7.63(H) 0.00 - 4.00 ng/mL LAB CHEMISTRY METHOD 04/07/2024 11:35 AM EST [facility] PSA, Complexed 7.04(H) 0.00 - 3.00 ng/mL LAB CHEMISTRY METHOD 04/07/2024 11:35 AM EST [facility] PSA, Free 0.6 ng/mL LAB CHEMISTRY METHOD 04/07/2024 11:35 AM EST [facility] PSA, Free Pct 7.9(L) >25.0 % LAB CHEMISTRY METHOD 04/07/2024 11:35 AM EST [facility] Blood Venous blood specimen / Unknown Venipuncture / Unknown 04/07/2024 8:27 AM EST 04/07/2024 9:52 AM EST Narrative [facility] - 04/07/2024 11:35 AM EST Free PSA is a calculated value. ??The diagnostic usefulness of % free PSA has not been established in patients with Total PSA below 2.6 or above 10 ng/mL. ?? This test was performed using the Centaur Chemiluminescent method. ??PSA values obtained with other methods cannot be used interchangeably. Maurajuan m Weir [facility] BLOOD ORDERABLE S [facility] [address] [place] [address], from Last 3 Months Care Teams Processing Rep Relationship Specialty Start Date End Date Donna Greer MD [address] [place] [address] [place] [address] PCP - General Internal Medicine 04/12/24
== END 2024-06-30 11:51 | disposition home or self-care (01) ==
PROVIDERS: PCP Internal Medicine; Visit Provider Urology
DX: C61 Malignant neoplasm of prostate (principal); Z19.1 Hormone sensitive malignancy status; Z13.9 Encounter for screening, unspecified
CPT/HCPCS: 99213

== ENCOUNTER → 2024-06-30 10:33 | Outpatient (BNVA) | payer OTHER, SELFPAY | PROVIDERS: PCP Internal Medicine; Visit Provider Urology | DX: C61 Malignant neoplasm of prostate (principal); Z79.899 Other long term (current) drug therapy; Z19.1 Hormone sensitive malignancy status | CPT/HCPCS: 81003 ==

== ENCOUNTER 2024-12-15 07:55 | Outpatient (REF) | payer OTHER, SELFPAY ==
--- OUTSIDE RECORDS SUMMARY | 2024-12-15 07:57 | XMS_ITS | Clinical Summary ---
Author Organization [facility] Address [address] [place] [address] Phone Care Team Providers Care Systems Manager Name Role Phone Donna Greer MD Primary Care Provider [phone] Encounters Date Type Department Care Team Description 09/01/2024 Lab Requisition [facility] Lab [address] [facility] [place] [phone] Donna Greer MD Type 2 diabetes mellitus without complications (CMS/HCC V24, CMS/[facility] V28) from Last 3 Months Surgical History Surgery [...] Recorded Sex Assigned at Not on file Legal Sex Male 8:58 PM EST Gender Identity Not on file Sexual Orientation Not on file Obstetrics History Plan of Treatment Health Maintenance Due Date Last Done Comments Diabetes: Annual Foot Exam 1976 Diabetes: Annual Retina Eye Exam 1976 Colorectal Cancer Screening: Stool Based Tests (FOBT/FIT) 07/02/2019 Depression Screening 07/02/2019 HIV Screening 07/02/2019 Hepatitis C Screening 07/02/2019 Social Influencers of Health Screening 07/02/2019 Hepatitis B Vaccines (2 of 3 - 19+ 3-dose series) 02/01/2020 01/04/2020 Pneumococcal Vaccine: 50+ Years (2 of 2 - PCV) 03/19/2022 03/19/2021 COVID-19 Vaccine ( - season) 2024 05/13/2023, 04/02/2021, 09/27/2020, Additional history exists Influenza Vaccine (#1) 2025 03/11/2023, 2020 Diabetes: Blood Sugar Control Test (HGBA1C) 05/23/2025 11/21/2024, 07/04/2024 Diabetes: Annual Urine Albumin-Creatinine Ratio (uACR) 11/21/2025 11/21/2024 Diabetes: Annual GFR (Glomerular Filtration Rate) 11/21/2025 11/21/2024, 07/04/2024 Hypertension/CHF/CAD Annual BMP Blood Test 11/21/2025 11/21/2024, 07/04/2024 Cholesterol Screening (Lipid Panel) 07/04/2029 07/04/2024 DTaP,Tdap,and Td Vaccines (2 - Td or Tdap) 04/09/2032 04/09/2022 Zoster Vaccines Completed 03/11/2023, 04/09/2022 HIB Vaccines [...] patient's age to complete this topic Meningococcal B Vaccine Aged Out No l onger eligible based on patient's age to complete this topic RSV Immunization Patients Under 20 months Aged Out No longer eligible based on patient's age to complete this topic Varicella Vaccines Aged Out No longer eligible based on patient's age to complete this topic Procedures Procedure Name Priority Date/Time Associated Diagnosis Comments HEMOGLOBIN A1C Routine 11/21/2024 8:15 AM EDT Type 2 diabetes mellitus without complications ([facility] V24, [facility] V28) COMPREHENSIVE METABOLIC PANEL Routine 11/21/2024 8:15 AM EDT Type 2 diabetes mellitus without complications ([facility] V24, [facility] V28) MICROALBUMIN CREATININE URINE RATIO Routine 11/21/2024 8:14 AM EDT Type 2 diabetes mellitus without complications ([facility] V24, [facility] V28) LIPID PANEL WITH REFLEX TO DIRECT LDL Routine 07/04/2024 8:08 AM EST Diabetes mellitus ([facility] V24, [facility] V28) Hypercholesterolemia Essential hypertension, malignant Asthmatic bronchitis Elevated prostate specific antigen (PSA) from Last 3 Months or Most Recently Relevant to Health Maintenance Results * Hemoglobin A1c (11/21/2024 8:15 AM EDT) Hemoglobin A1C 6.3 <6.5 % LAB CHEMISTRY METHOD 11/21/2024 1:30 PM EDT [facility] Mean Bld Glu Estim. 134 mg/dL LAB CHEMISTRY METHOD 11/21/2024 1:30 PM EDT [facility] Blood Venous blood specimen / Unknown Venipuncture / Unknown 11/21/2024 8:15 AM EDT 11/21/2024 8:45 AM EDT us Donna Greer MD LAB BLOOD ORDERABLES Final Re sult [facility] [address] [place] [address], [place] [phone] * (ABNORMAL) Comprehensive metabolic panel (11/21/2024 8:15 AM EDT) Sodium 140 133 - 145 mmol/L LAB CHEMISTRY METHOD 11/21/2024 9:33 AM [facility] Potassium 3.5 3.5 - 5.5 mmol/L LAB CHEMISTRY METHOD 11/21/2024 9:33 AM [facility] Chloride 106 96 - 110 mmol/L LAB CHEMISTRY METHOD 11/21/2024 9:33 AM [facility] CO2 29 21 - 32 mmol/L LAB CHEMISTRY METHOD 11/21/2024 9:33 AM [facility] Anion Gap 5 3 - 11 LAB CHEMISTRY METHOD 11/21/2024 9:33 AM [facility] Glucose 122(H) 70 - 100 mg/dL LAB CHEMISTRY METHOD 11/21/2024 9:33 AM [facility] BUN 18 5 - 25 mg/dL LAB CHEMISTRY METHOD 11/21/2024 9:33 AM [facility] Creatinine 1.11 0.70 - 1.30 mg/dL LAB CHEMISTRY METHOD 11/21/2024 9:33 AM [facility] eGFR 77 >=60 mL/min/1. 73m2 LAB CHEMISTRY METHOD 11/21/2024 9:33 AM [facility] Comment:Calculation based on the Chronic Kidney Disease Epidemiology Collaboration (CKD-EPI) equation refit without adjustment for race. BUN/Creatinine Ratio 16.2 LAB CHEMISTRY METHOD 11/21/2024 9:33 AM [facility] Calcium 8.8 8.5 - 10.5 mg/dL LAB CHEMISTRY METHOD 11/21/2024 9:33 AM [facility] AST (SGOT) 19 10 - 42 unit/L LAB CHEMISTRY METHOD 11/21/2024 9:33 AM [facility] ALT (SGPT) 29 10 - 60 unit/L LAB CHEMISTRY METHOD 11/21/2024 9:33 AM [facility] Alkaline Phosphatase 65 42 - 121 unit/L LAB CHEMISTRY METHOD 11/21/2024 9:33 AM EDT [facility] Total Protein 7.3 6.0 - 8.0 g/dL LAB CHEMISTRY METHOD 11/21/2024 9:33 AM EDT [facility] Albumin 3.8 3.2 - 5.0 g/dL LAB CHEMISTRY METHOD 11/21/2024 9:33 AM EDT [facility] Total Bilirubin 0.4 0.0 - 1.4 mg/dL LAB CHEMISTRY METHOD 11/21/2024 9:33 AM EDT [facility] Blood Venous blood specimen / Unknown Venipuncture / Unknown 11/21/2024 8:15 AM EDT 11/21/2024 8:48 AM EDT Donna Greer MD LAB BLOOD ORDERABLES Final Re sult Performing Organization Address City/State/[facility] Co de Phone Number [facility] [address] [place] [address], [place] [phone] * Microalbumin creatinine urine ratio (11/21/2024 8:14 AM EDT) Creatinine, Urine 211.0 mg/dL LAB CHEMISTRY METHOD 11/21/2024 9:58 AM EDT [facility] Microalb, Ur 7.0 0.0 - 29.0 mg/L LAB CHEMISTRY METHOD 11/21/2024 9:58 AM EDT [facility] Microalb/Creat Ratio 3 <30 mg/g creat LAB CHEMISTRY METHOD 11/21/2024 9:58 AM EDT [facility] Urine Urine specimen obtained by clean catch procedure / Unknown 11/21/2024 8:14 AM EDT 11/21/2024 8:49 AM EDT us Donna Greer MD LAB URINE ORDERABLES Final Re sult [facility] [address] [place] [address], [place] [phone] * Lipid panel with reflex to direct LDL (07/04/2024 8:08 AM EST) Cholesterol 138 0 - 200 mg/dL LAB CHEMISTRY METHOD 07/04/2024 11:23 AM EST [facility] Triglycerides 120 0 - 150 mg/dL LAB CHEMISTRY METHOD 07/04/2024 11:23 AM [facility] HDL 47 >=40 mg/dL LAB CHEMISTRY METHOD 07/04/2024 11:23 AM [facility] LDL Calculated 67 0 - 100 mg/dL LAB CHEMISTRY METHOD 07/04/2024 11:23 AM [facility] VLDL Cholesterol Husam 24 mg/dL LAB CHEMISTRY METHOD 07/04/2024 11:23 AM EST [facility] Non HDL Chol. (LDL+VLDL) 91 <145 mg/dL LAB CHEMISTRY METHOD 07/04/2024 11:23 AM [facility] Chol/HDL Ratio 2.9 0.0 - 4.4 LAB CHEMISTRY METHOD 07/04/2024 11:23 AM [facility] Blood Venous blood specimen / Unknown Venipuncture / Unknown 07/04/2024 8:08 AM EST 07/04/2024 9:56 AM EST us Donna Greer MD LAB BLOOD ORDERABLES Final Re sult [facility] [address] [place] [address], [place] [phone] from Last 3 Months or Most Recently Relevant to Health Maintenance Insurance [employer] [id number] Care Teams Systems Manager Relationship Specialty Start Date End Date Donna Greer MD [address] [place] [address] [place] [address] PCP - General Internal Medicine 04/12/24
[2024-12-15 09:40] LABS: PSA,Total (Free>4and<10) 7.14 ng/mL (0.00-4.00)
[2024-12-16 13:02] LABS: Free Prostate Spec Ag 0.7 ng/mL; Percent Free Prostate Spec Ag 12 % (calc) (>25)
== END 2024-12-15 07:56 | disposition home or self-care (01) ==
LOC: HO.LAB 07:55
PROVIDERS: Nurse Practitioner Family; PCP Internal Medicine; Visit Provider Urology
DX: N41.9 Inflammatory disease of prostate, unspecified (principal); R97.20 Elevated prostate specific antigen [PSA]
CPT/HCPCS: 36415; 84153; 84154

== ENCOUNTER 2024-12-29 11:19 | Outpatient (AMB) | payer OTHER, SELFPAY ==
--- NOTE | 2024-12-29 11:20 | A.OFFVIS_ITS ---
Intake Visit Reasons: 6m/PSA(psa?) Intake Note: Patient is present for 6 mo follow up labs done 12/15/2024 PSA Total: 7.14 Urology Medication:FINASTERIDE Antibiotic Allergy:NONE Blood Thinner:NONE Door Installer Required: No Accompanied by: Self / Same As Patient Allergies No Known Allergies Allergy (Verified 12/29/24 11:21) HPI Comments Details: Garcezar is a pleasant in male. He is a patient of Dr. Greer. He seen for the following urological history - prostate cancer Follow-up PSA 6.0 Printed copy of Prolaris provided Discussed result Continue with PSA surveillance Prostate cancer - low volume, low-grade MRI: 06/25 1.4 cm lesion anterior midline PI-RADS 4, prostate 30 g Prolaris score 2.2 active surveillance 09/22 6.8, 04/24 7.6 % free PSA 8%, 12/23 6.0 12% Histologic type: Adenocarcinoma, acinar type Histologic grade:[place] score: 3+3=6 % of pattern 4: 0% % of pattern 5: 0% Grade group: 1 Tumor quantitation: Number cores positive: 2 Total number of cores: 12 Periprostatic fat inv.: Not identified Seminal vesicle inv.: Not identified Perineural inv.: Not identified LVI: Not identified PFSH Medical History (Reviewed 04/15/24 @ 14:38 by [facility] High cholesterol Diabetes mellitus Asthma Hypertension Review of Systems Const Denies chills and Denies fever(s) Card Reports no additional complaints and Denies syncope Resp Denies cough GI Denies abdominal pain and Denies heartburn Reports as per HPI and Denies change in libido Neuro Denies syncope Psych Denies change in libido Endo Denies change in libido Physical Exam Const General: cooperative, healthy appearing, comfortable and no acute distress Orientation/consciousness: patient oriented x3 HEENT Face and sinus: Yes normal facial exam Mouth: moist mucous membranes Neck Neck: Yes normal visual inspection, Yes full ROM and Yes trachea midline Chest Chest palpation & inspection: normal inspection of the chest Resp Effort & Inspection: normal respiratory effort, able to speak in complete sentences and no respiratory distress GI Inspection: Yes normal to inspection Back/Spine/Pelvis Cervical Spine: normal cervical lordosis Thoracic/Lumbar Spine: thoracic and lumbar spine normal to inspection Skin General skin exam: no rashes or lesions noted Neuro General: patient oriented x3, gait normal, tone normal and moves all extremities Extrem General: Yes normal to inspection and Yes capillary refill normal Assessment & Plan Assessment & Plan (1) Hormone sensitive prostate cancer: Code(s): C61 - Malignant neoplasm of prostate; Z19.1 - Hormone sensitive malignancy status Category: Medical Plan Six-month follow-up PSA Orders: Orders Prostate Specific Antigen 6 Months C61 - Malignant neoplasm of prostate, Z19.1 - Hormone sensitive malignancy status Patient Instructions: This note is constructed using voice recognition software. While every effort has been made to ensure accuracy cost recovery technician errors may have been included. Imaging studies, laboratory and physical exam results were discussed and reviewed in detail. No major barriers to patient understanding were identified. An opportunity to ask questions regarding the treatment plan was provided. All questions were answered. The patient expressed understanding and agreement with the above treatment plan. The patient is aware they should contact our office by phone for worsening of their current condition or the appearance of new urologic symptoms. Compliance is encouraged with any medications and followup testing that is ordered. It is a privilege to participate in the urologic care of your patient. If you have any questions or concerns regarding treatment for the above conditions, or other urologic issues, please do not hesitate to contact me. The office telephone contact is [phone]. Sincerely, Dr Miller Rodgers MD, [facility] - Urology Compassionate Specialist Care for the Genitourinary System Coding Level of Care Code Est Pt Level 3 (52486) Complex EM visit Add On G2211 Diagnoses Hormone sensitive prostate cancer C61; Z19.1
--- OUTSIDE RECORDS SUMMARY | 2024-12-29 12:08 | XMS_ITS | Encounter Summary ---
Author Organization [facility] Address [address] [place] [address] Care Team Providers Care Print Graphic Designer Name Role Phone Yevgeniy Villaseñor MD Primary Care Provider Encounter Details Date Type Department Care Team Description 01/18/2019 Transfer Records Medical Records [address] [place] [id number] Abstract, Provider Social History Tobacco Use Types Packs/Day Years Used Date Smoking Tobacco: Never Smokeless Tobacco: Never Alcohol Use Standard Drinks/Week Comments No 0 (1 standard drink = 0.6 oz pur e alcohol) Sex Assigned at Date Recorded Not on file documented as of this encounter Plan of Treatment Not on file documented as of this encounter Visit Diagnoses Not on filedocumented in this encounter Care Teams Print Graphic Designer Relationship Specialty Start Date End Date Yevgeniy Villaseñor MD PCP - General Internal Medicine 06/10/18 documented as of this encounter
--- OUTSIDE RECORDS SUMMARY | 2024-12-29 12:08 | XMS_ITS | Clinical Summary ---
Author Organization [facility] Address [address] [place] [address] Phone Care Team Providers Care Car Seat Coverer Name Role Phone Donna Greer MD Primary Care Provider Encounters Date Type Department Care Team Description 09/01/2024 Lab Requisition [facility] [address] [facility] [place] [id number] Donna Greer MD Type 2 diabetes mellitus without complications (CMS/HCC V24, CMS/[facility] V28) from Last 3 Months Surgical History [...] Cancer Screening: Stool Based Tests (FOBT/FIT) 07/02/2019 HIV Screening 07/02/2019 Hepatitis C Screening 07/02/2019 Social Influencers of Health Screening 07/02/2019 Hepatitis B Vaccines (2 of 3 - 19+ 3-dose series) 02/01/2020 01/04/2020 Pneumococcal Vaccine: 50+ Years (2 of 2 - PCV) 03/19/2022 03/19/2021 COVID-19 Vaccine ( season) 2024 05/13/2023, 04/02/2021, 09/27/2020, Additional history exists Depression Screening 06/01/2024 Influenza Vaccine (#1) 2025 03/11/2023, 2020 Diabetes: [...] EDT Type 2 diabetes mellitus without complications ([facility] V24, [facility] V28) COMPREHENSIVE METABOLIC PANEL Routine 11/21/2024 8:15 AM EDT Type 2 diabetes mellitus without complications ([facility] V24, [facility] V28) MICROALBUMIN CREATININE URINE RATIO Routine 11/21/2024 8:14 AM EDT Type 2 diabetes mellitus without complications ([facility] [place] V24, [facility] V28) LIPID PANEL WITH REFLEX TO DIRECT LDL Routine 07/04/2024 8:08 AM EST Diabetes mellitus ([facility] V24, [facility] V28) Hypercholesterolemia Essential hypertension, malignant Asthmatic bronchitis Elevated prostate specific antigen (PSA) from Last 3 Months or Most Recently Relevant to Health Maintenance Results * Hemoglobin A1c (11/21/2024 8:15 AM EDT) Hemoglobin A1C 6.3 <6.5 % LAB CHEMISTRY METHOD 11/21/2024 1:30 PM EDT [facility] Mean Bld Glu Estim. 134 mg/dL LAB CHEMISTRY METHOD 11/21/2024 1:30 PM EDT [facility] Blood Venous blood specimen / Unknown Venipuncture / Unknown 11/21/2024 8:15 AM EDT 11/21/2024 8:45 AM EDT us Donna Greer MD LAB BLOOD ORDERABLES Final Re sult [facility] [address] [place] [address], [place] [phone] * (ABNORMAL) Comprehensive metabolic panel (11/21/2024 8:15 AM EDT) Sodium 140 133 - 145 mmol/L LAB CHEMISTRY METHOD 11/21/2024 9:33 AM [facility] Potassium 3.5 3.5 - 5.5 mmol/L LAB CHEMISTRY METHOD 11/21/2024 9:33 AM [facility] Chloride 106 96 - 110 mmol/L LAB CHEMISTRY METHOD 11/21/2024 9:33 AM [facility] CO2 29 21 - 32 mmol/L LAB CHEMISTRY METHOD 11/21/2024 9:33 AM [facility] Anion Gap 5 3 - 11 LAB CHEMISTRY METHOD 11/21/2024 9:33 AM [facility] Glucose 122(H) 70 - 100 mg/dL LAB CHEMISTRY METHOD 11/21/2024 9:33 AM [facility] BUN 18 5 - 25 mg/dL LAB CHEMISTRY METHOD 11/21/2024 9:33 AM [facility] Creatinine 1.11 0.70 - 1.30 mg/dL LAB CHEMISTRY METHOD 11/21/2024 9:33 AM [facility] eGFR 77 >=60 mL/min/1. 73m2 LAB CHEMISTRY METHOD 11/21/2024 9:33 AM [facility] Comment:Calculation based on the Chronic Kidney Disease Epidemiology Collaboration (CKD-EPI) equation refit without adjustment for race. BUN/Creatinine Ratio 16.2 LAB CHEMISTRY METHOD 11/21/2024 9:33 AM [facility] Calcium 8.8 8.5 - 10.5 mg/dL LAB CHEMISTRY METHOD 11/21/2024 9:33 AM [facility] AST (SGOT) 19 10 - 42 unit/L LAB CHEMISTRY METHOD 11/21/2024 9:33 AM [facility] ALT (SGPT) 29 10 - 60 unit/L LAB CHEMISTRY METHOD 11/21/2024 9:33 AM [facility] Alkaline Phosphatase 65 42 - 121 unit/L LAB CHEMISTRY METHOD 11/21/2024 9:33 AM EDT [facility] Total Protein 7.3 6.0 - 8.0 g/dL LAB CHEMISTRY METHOD 11/21/2024 9:33 AM EDT [facility] Albumin 3.8 3.2 - 5.0 g/dL LAB CHEMISTRY METHOD 11/21/2024 9:33 AM EDT [facility] Total Bilirubin 0.4 0.0 - 1.4 mg/dL LAB CHEMISTRY METHOD 11/21/2024 9:33 AM EDT [facility] Blood Venous blood specimen / Unknown Venipuncture / Unknown 11/21/2024 8:15 AM EDT 11/21/2024 8:48 AM EDT Donna Greer MD LAB BLOOD ORDERABLES Final Re sult Performing Organization Address City/State/[facility] Co de Phone Number [facility] [address] [place] [address], [place] [phone] * Microalbumin creatinine urine ratio (11/21/2024 8:14 AM EDT) Creatinine, Urine 211.0 mg/dL LAB CHEMISTRY METHOD 11/21/2024 9:58 AM EDT [facility] Microalb, Ur 7.0 0.0 - 29.0 mg/L LAB CHEMISTRY METHOD 11/21/2024 9:58 AM EDT [facility] Microalb/Creat Ratio 3 <30 mg/g creat LAB CHEMISTRY METHOD 11/21/2024 9:58 AM EDT [facility] Urine Urine specimen obtained by clean catch procedure / Unknown 11/21/2024 8:14 AM EDT 11/21/2024 8:49 AM EDT us Donna Greer MD LAB URINE ORDERABLES Final Re sult [facility] [address] [place] [address], [place] [phone] * Lipid panel with reflex to direct LDL (07/04/2024 8:08 AM EST) Cholesterol 138 0 - 200 mg/dL LAB CHEMISTRY METHOD 07/04/2024 11:23 AM EST [facility] Triglycerides 120 0 - 150 mg/dL LAB CHEMISTRY METHOD 07/04/2024 11:23 AM [facility] HDL 47 >=40 mg/dL LAB CHEMISTRY METHOD 07/04/2024 11:23 AM [facility] LDL Calculated 67 0 - 100 mg/dL LAB CHEMISTRY METHOD 07/04/2024 11:23 AM [facility] VLDL Cholesterol Husam 24 mg/dL LAB CHEMISTRY METHOD 07/04/2024 11:23 AM EST [facility] Non HDL Chol. (LDL+VLDL) 91 <145 mg/dL LAB CHEMISTRY METHOD 07/04/2024 11:23 AM EST [facility] Chol/HDL Ratio 2.9 0.0 - 4.4 LAB CHEMISTRY METHOD 07/04/2024 11:23 AM [facility] Blood Venous blood specimen / Unknown Venipuncture / Unknown 07/04/2024 8:08 AM EST 07/04/2024 9:56 AM EST us Donna Greer MD LAB BLOOD ORDERABLES Final Re sult [facility] [address] [place] [address], [place] [phone] from Last 3 Months or Most Recently Relevant to Health Maintenance Insurance [employer] [id number] Care Teams Car Seat Coverer Relationship Specialty Start Date End Date Donna Greer MD [address] [place] [address] [place] [address] PCP - General Internal Medicine 04/12/24
--- OUTSIDE RECORDS SUMMARY | 2024-12-29 12:08 | XMS_ITS ---
Author Name [facility] Organization Unknown Care Team Organization Name Specialty Phone Email Start Date End Da te [facility] NULL Primary Care 04/08/2022 01/18/2024
== END 2024-12-29 11:54 | disposition home or self-care (01) ==
LOC: HO.HUSH 11:20
PROVIDERS: PCP Internal Medicine; Visit Provider Urology
DX: C61 Malignant neoplasm of prostate (principal); Z19.1 Hormone sensitive malignancy status
CPT/HCPCS: 99213; G2211